=== PATIENT | female | born 1980 | race American Indian/Alaskan Native ===

== ENCOUNTER 2017-12-09 01:42 | Emergency (ER) | payer SELFPAY ==
[2017-12-09 04:01] LABS: HCG Qualitative,Urine Negative (Negative)
[2017-12-09 04:03] LABS: Bilirubin,Urine NEG (Negative); Blood,Urine NEG (Negative); Color,Urine Yellow (Yellow); Mucus,Urine FEW /HPF; Protein,Urine <15 mg/dL mg/dL (Negative); Urobilinogen,Urine < 2.0 mg/dL (<2.0)
[2017-12-09] MEDS ORDERED: MOTRIN PO ONE (04:13)
--- NOTE | 2017-12-09 04:16 | Emergency Department Report ---
ED Abdominal Pain HPI - General Chief Complaint: Back Pain/Injury Stated Complaint: ABD/BACK PAIN Time Seen by Provider: 12/09/17 04:03 Source: patient Mode of arrival: Ambulatory Limitations: No Limitations - History of Present Illness Initial Comments: 37-year-old -[place] female comes to the emergency room for left flank and lower back pain with pelvic pain. Patient denies any dysuria no fever no chills, no nausea no vomiting, no vaginal discharge, no vaginal bleeding. She reports that the pain is sharp nothing makes it worse lying on her stomach makes it better. Patient is taking no pain medication. She's been having normal bowels. She is sexually active with males unprotected one partner in the last 6 months. Patient reports she takes medications on a daily basis has no past medical history no known drug allergies. MD Complaint: abdominal pain -: days(s) Location: suprapubic Migration to: no migration Severity: moderate Severity scale (0 -10): 8 Consistency: intermittent Improves With: rest (lying on stomach) Worsens With: nothing Associated Symptoms: denies other symptoms. denies: nausea, vomiting, diarrhea , chills, constipation, dysuria, hematemesis, melena, hematuria, anorexia, syncope Treatments Prior to Arrival: other (no meds ) - Related Data LMP Date: 11/24/17 Home Medications Medication Instructions Recorded Confirmed Last Taken Aspirin [Aspirin BABY CHEW TAB] 81 mg PO DAILY 10/14/13 10/14/13 Unknown Previous Rx's Medication Instructions Recorded Last Taken Type Lisinopril [Zestril TAB] 20 mg PO QDAY #30 tablet 10/15/13 Unknown Rx Ibuprofen [Motrin 800 MG tab] 800 mg PO Q8H PRN #15 tablet 12/09/17 Unknown Rx Nitrofurantoin Monohyd/M-Cryst 100 mg PO BID #14 capsule 12/09/17 Unknown Rx [Macrobid 100 mg Capsule] Allergies Allergy/AdvReac Type Severity Reaction Status Date / Time No Known Allergies Allergy Verified 10/14/13 22:37 ED Review of Systems ROS: Stated complaint: ABD/BACK PAIN Other details as noted in HPI Constitutional: denies: chills, fever Eyes: denies: eye pain, eye discharge, vision change ENT: denies: ear pain, throat pain Respiratory: denies: cough, shortness of breath, wheezing Cardiovascular: denies: chest pain, palpitations Endocrine: no symptoms reported Gastrointestinal: abdominal pain (pelvic). denies: nausea, diarrhea Genitourinary: denies: urgency, dysuria, discharge Musculoskeletal: back pain Skin: denies: rash, lesions Neurological: denies: headache, weakness, paresthesias Psychiatric: denies: anxiety, depression Hematological/Lymphatic: denies: easy bleeding, easy bruising ED Past Medical Hx - Past Medical History Previous Medical History?: Yes Hx Hypertension: Yes Hx Congestive Heart Failure: No Hx Diabetes: No Hx Asthma: No Hx COPD: No - Surgical History Past Surgical History?: No - Social History Smoking Status: Current Every Day Smoker Substance Use Type: Marijuana - Medications Home Medications: Home Medications Medication Instructions Recorded Confirmed Last Taken Type Aspirin [Aspirin BABY CHEW TAB] 81 mg PO DAILY 10/14/13 10/14/13 Unknown History Lisinopril [Zestril TAB] 20 mg PO QDAY #30 tablet 10/15/13 Unknown Rx Ibuprofen [Motrin 800 MG tab] 800 mg PO Q8H PRN #15 tablet 12/09/17 Unknown Rx Nitrofurantoin Monohyd/M-Cryst 100 mg PO BID #14 capsule 12/09/17 Unknown Rx [Macrobid 100 mg Capsule] ED Physical Exam - General Limitations: No Limitations General appearance: alert, in no apparent distress - Head Head exam: Present: atraumatic, normocephalic - Eye Eye exam: Present: normal appearance - ENT ENT exam: Present: mucous membranes moist - Neck Neck exam: Present: normal inspection, full ROM - GI/Abdominal GI/Abdominal exam: Present: soft. Absent: distended, guarding, rebound - Extremities Exam Extremities exam: Present: normal inspection - Back Exam Back exam: Present: normal inspection - Neurological Exam Neurological exam: Present: alert, oriented X3 - Psychiatric Psychiatric exam: Present: normal affect, normal mood - Skin Skin exam: Present: warm, dry, intact, normal color. Absent: rash ED Course Vital Signs 12/09/17 02:00 Temperature 97.9 F Respiratory 18 Rate ED Medical Decision Making - Medical Decision Making Patient's been evaluated by this provider fast track. Urine analysis was ordered. Patient has a trace of leukocytes. We'll also give patient pain medication. This patient is having no vaginal discharge or vaginal bleeding we will treat her for urinary tract infection Esvin urine culture and have her follow-up with her primary care provider. Critical care attestation.: If time is entered above; I have spent that time in minutes in the direct care of this critically ill patient, excluding procedure time. ED Disposition Clinical Impression: UTI (urinary tract infection) Qualifiers: Urinary tract infection type: site unspecified Hematuria presence: without hematuria Qualified Code(s): N39.0 - Urinary tract infection, site not specified Disposition: TO HOME OR SELFCARE Is pt being admited?: No Does the pt Need Aspirin: No Condition: Stable Instructions: Urinary Tract Infection in Women (ED) Additional Instructions: Complete antibiotics as prescribed. Take pain medication as prescribed. Follow up with her primary care provider if symptoms persist or gets worse. I have listed one below for your convenience. Prescriptions: Ibuprofen [Motrin 800 MG tab] 800 mg PO Q8H PRN #15 tablet PRN Reason: Pain Nitrofurantoin Monohyd/M-Cryst [Macrobid 100 mg Capsule] 100 mg PO BID #14 capsule Referrals: JAKE CHAPARRO MD [Primary Care Provider] - 3-5 Days [facility] [Provider Group] - 3-5 Days
[2017-12-09 04:24] VITALS: BP 164/106
== END 2017-12-09 04:40 | disposition home or self-care (01) ==
LOC: ED 01:42
DX: N39.0 Urinary tract infection, site not specified (principal); I10 Essential (primary) hypertension; F17.200 Nicotine dependence, unspecified, uncomplicated; Z79.82 Long term (current) use of aspirin
CPT/HCPCS: 81001; 81025; 87086; 99283